=== PATIENT | male | born 1980 | race Caucasian/White ===

== ENCOUNTER 2016-11-18 18:14 | Emergency (ER) | payer OTHER ==
[~2016-11-18] VITALS: Ht 177.8 cm; Wt 120.0 kg
[2016-11-18] MEDS ORDERED: ONDANSETRON 4MG ODT PO ONE (23:00)
[2016-11-18] MEDS ORDERED: KETOROLAC 30MG/ML VIAL IM ONE (23:00)
[2016-11-18 23:57] LABS: BASOPHILS % 0.9 % (0.0-2.0); EOSINOPHILS % 3.1 % (0.0-5.0); HEMATOCRIT. 38.7 % (42.0-52.0); LYMPHOCYTES % 24.1 % (20.0-50.0); MEAN CORPUSCULAR HEMOGLOBIN 29.1 pg (28.0-32.0); MEAN CORPUSCULAR VOLUME 86.7 fL (80.0-94.0); MEAN PLATELET VOLUME 10.6 fl (7.4-10.4); MONOCYTES % 9.4 % (2.0-8.0); NEUTROPHILS % 62.5 % (40.0-76.0); PLATELET 166 x1000/uL (130-400); RED BLOOD CELL COUNT 4.47 mill/uL (4.7-6.1); RED CELL DISTRIBUTION WIDTH 13.4 % (11.6-14.6)
[2016-11-19 00:18] LABS: CARBON DIOXIDE 28 mEq/L (21-32); CHLORIDE 104 mEq/L (98-107)
[2016-11-19 00:58] VITALS: BP 141/85
== END 2016-11-19 01:08 | disposition home or self-care (01) ==
LOC: ER 18:26
DX: G43.909 Migraine, unspecified, not intractable, without status migrainosus (principal); M79.642 Pain in left hand; M79.641 Pain in right hand; M25.532 Pain in left wrist; M25.531 Pain in right wrist; R20.0 Anesthesia of skin; R20.2 Paresthesia of skin; I10 Essential (primary) hypertension; E66.9 Obesity, unspecified; Z68.38 Body mass index [BMI] 38.0-38.9, adult
CPT/HCPCS: 36415; 80053; 85025; 96372; 99284; J1885; Q0162

== ENCOUNTER 2017-03-08 09:05 | Emergency (ER) | payer OTHER ==
[~2017-03-08] VITALS: Ht 170.2 cm; Wt 122.0 kg
[2017-03-08] MEDS ORDERED: KETOROLAC 60MG/2ML VIAL IM ONE (09:30)
[2017-03-08] MEDS ORDERED: HYDROCODONE/ACETAMINOPHEN 5/325MG TABLET PO ONE (09:30)
[2017-03-08] MEDS ORDERED: ONDANSETRON 4MG ODT PO ONE (09:30)
[2017-03-08 09:47] VITALS: BP 127/85
== END 2017-03-08 11:22 | disposition home or self-care (01) ==
LOC: ER 09:05
DX: S70.01XA Contusion of right hip, initial encounter (principal); M54.40 Lumbago with sciatica, unspecified side; G43.909 Migraine, unspecified, not intractable, without status migrainosus; F17.210 Nicotine dependence, cigarettes, uncomplicated; E66.9 Obesity, unspecified; Z68.41 Body mass index [BMI] 40.0-44.9, adult; W01.0XXA Fall on same level from slipping, tripping and stumbling without subsequent striking against object, initial encounter; Y93.89 Activity, other specified; Y92.512 Supermarket, store or market as the place of occurrence of the external cause
CPT/HCPCS: 72100; 73521; 96372; 99284; J1885; Q0162; Z7610

== ENCOUNTER 2017-05-05 18:40 | Inpatient (IN) | payer MEDICAID, OTHER ==
[~2017-05-05] VITALS: Ht 170.2 cm; Wt 113.4 kg
[2017-05-05] MEDS ORDERED: MORPHINE SULFATE 4 MG/ML CPJ (NOT FOR IM USE) IV STA (22:07)
[2017-05-05] MEDS ORDERED: ONDANSETRON HCL 4MG/2ML VIAL IV STA (22:07)
[2017-05-05] MEDS ORDERED: SODIUM CHLORIDE 0.9% 1,000 ML IV ONE (22:09)
[2017-05-05 22:42] LABS: CHLORIDE 103 mEq/L (98-107)
[2017-05-05 22:43] LABS: INR 1.1; PARTIAL THROMBOPLASTIN TIME 26.5 sec (23.4-31.0); PROTHROMBIN TIME 11.2 sec (9.4-11.6)
[2017-05-05 22:47] LABS: BASOPHILS % 0.7 % (0.0-2.0); CARBON DIOXIDE 27 mEq/L (21-32); EOSINOPHILS % 0.9 % (0.0-5.0); HEMATOCRIT. 38.4 % (42.0-52.0); HEMOGLOBIN. 12.8 g/dL (14.0-18.0); LYMPHOCYTES % 21.3 % (20.0-50.0); MEAN CORPUSCULAR HEMOGLOBIN 29.6 pg (28.0-32.0); MEAN PLATELET VOLUME 10.5 fl (7.4-10.4); MONOCYTES % 8.4 % (2.0-8.0); NEUTROPHILS % 68.7 % (40.0-76.0); PLATELET 212 x1000/uL (130-400); RED BLOOD CELL COUNT 4.32 mill/uL (4.7-6.1); RED CELL DISTRIBUTION WIDTH 13.7 % (11.6-14.6)
[2017-05-05 22:51] LABS: TROPONIN I < 0.02 ng/mL (0.00-0.04)
[2017-05-06] MEDS: HYDROCODONE/ACETAMINOPHEN 5/325MG TABLET PO PRN ×2 (06:42→12:28)
[2017-05-06 08:30] VITALS: BP 140/91
[2017-05-06] MEDS ORDERED: [UNRECOGNIZED DRUG - CODE] PO (09:21)
[2017-05-06] MEDS ORDERED: IBUP-2030 PO (09:21)
[2017-05-06] MEDS ORDERED: SODIUM CHLORIDE 0.9% 1,000 ML IV SCH (11:00)
[2017-05-06 12:00] VITALS: BP 128/63
[2017-05-06 13:31] LABS: *AMPHETAMINES SCREEN URINE NEGATIVE (NEGATIVE); *BARBITURATES SCREEN URINE NEGATIVE (NEGATIVE); *BENZODIAZEPINES SCREEN URINE NEGATIVE (NEGATIVE); *COCAINE SCREEN URINE NEGATIVE (NEGATIVE); CANNABINOID URINE SCREEN PRESUMTIVE POSITIVE (NEGATIVE); METHADONE URINE SCREEN NEGATIVE (NEGATIVE); OPIATES URINE SCREEN PRESUMTIVE POSITIVE (NEGATIVE); PHENCYCLIDINE URINE SCREEN NEGATIVE (NEGATIVE)
[2017-05-06] MEDS ORDERED: ONDANSETRON HCL 4MG/2ML VIAL IV PRN (14:15)
[2017-05-06 15:55] LABS: CREATINE KINASE 100 IU/L (39-308)
[2017-05-06 16:00] VITALS: BP 141/68
== END 2017-05-06 16:30 | disposition left against medical advice (07) | DRG 57 ==
LOC: ER 20:23 → 7WST 05-06 01:32 → ENRESERV 05-06 07:08
PROVIDERS: ADMIT Family Medicine Adult Medicine; ATTEND Family Medicine Adult Medicine
DX: S06.0X9A Concussion with loss of consciousness of unspecified duration, initial encounter (principal); E83.51 Hypocalcemia; E66.9 Obesity, unspecified; D64.9 Anemia, unspecified; F17.210 Nicotine dependence, cigarettes, uncomplicated; G56.03 Carpal tunnel syndrome, bilateral upper limbs; F12.90 Cannabis use, unspecified, uncomplicated; M53.82 Other specified dorsopathies, cervical region; V43.52XA Car driver injured in collision with other type car in traffic accident, initial encounter; Y93.89 Activity, other specified; Y99.8 Other external cause status; Y92.410 Unspecified street and highway as the place of occurrence of the external cause; Z68.39 Body mass index [BMI] 39.0-39.9, adult; Z53.21 Procedure and treatment not carried out due to patient leaving prior to being seen by health care provider
CPT/HCPCS: 36415; 70450; 71010; 72070; 72100; 72125; 80053; 80305; 82550; 84484; 85025; 85610; 85730; 93005; 96361; 96374; 96375; 97162; 99285; G0482; J2270; J2405; J7030

== ENCOUNTER 2017-11-05 08:06 | Emergency (ER) | payer MEDICAID, OTHER ==
[~2017-11-05] VITALS: Ht 167.6 cm; Wt 122.0 kg
[~2017-11-05 08:06] MED LIST: IBUP-2030 PO; [UNRECOGNIZED DRUG - CODE] PO
[2017-11-05 11:16] LABS: CLARITY URINE CLEAR (CLEAR); COLOR URINE YELLOW (YELLOW); KETONES URINE NEGATIVE (NEGATIVE); LEUKOCYTE ESTERASE URINE NEGATIVE (NEGATIVE); NITRITE URINE NEGATIVE (NEGATIVE); OCCULT BLOOD URINE NEGATIVE (NEGATIVE); PROTEIN URINE NEGATIVE (NEGATIVE); SPECIFIC GRAVITY URINE 1.016 (1.005-1.030); UROBILINOGEN URINE 0.2 E.U./dL (0.2-1.0)
[2017-11-05 11:25] LABS: EOSINOPHILS % 2.1 % (0.0-5.0); HEMATOCRIT. 38.2 % (42.0-52.0); MEAN CORPUSCULAR HEMOGLOBIN 29.5 pg (28.0-32.0); MEAN CORPUSCULAR VOLUME 86.8 fL (80.0-94.0); MONOCYTES % 8.4 % (2.0-8.0); NEUTROPHILS % 62.5 % (40.0-76.0); PLATELET 193 x1000/uL (130-400); RED BLOOD CELL COUNT 4.41 mill/uL (4.7-6.1); RED CELL DISTRIBUTION WIDTH 13.3 % (11.6-14.6)
[2017-11-05 11:36] LABS: CHLORIDE 105 mEq/L (98-107)
[2017-11-05 11:42] LABS: ETHANOL BLOOD < 10 mg/dL
[2017-11-05 11:49] LABS: PHENCYCLIDINE URINE SCREEN NEGATIVE (NEGATIVE)
[2017-11-05 11:50] LABS: *AMPHETAMINES SCREEN URINE NEGATIVE (NEGATIVE); *BARBITURATES SCREEN URINE NEGATIVE (NEGATIVE); *BENZODIAZEPINES SCREEN URINE NEGATIVE (NEGATIVE); *COCAINE SCREEN URINE NEGATIVE (NEGATIVE); CANNABINOID URINE SCREEN PRESUMTIVE POSITIVE (NEGATIVE); METHADONE URINE SCREEN NEGATIVE (NEGATIVE)
[2017-11-05 11:51] LABS: OPIATES URINE SCREEN NEGATIVE (NEGATIVE)
[2017-11-05] MEDS ORDERED: IBUPROFEN 400MG TABLET PO ONE (12:00)
[2017-11-06] MEDS ORDERED: ACETAMINOPHEN 325MG TABLET PO ONE (02:15)
[2017-11-06 11:07] VITALS: BP 152/89
== END 2017-11-06 11:35 | disposition home or self-care (01) ==
LOC: ER 08:17
DX: R45.851 Suicidal ideations (principal); F12.129 Cannabis abuse with intoxication, unspecified; I10 Essential (primary) hypertension; M54.5 Low back pain; R51 Headache; F17.200 Nicotine dependence, unspecified, uncomplicated
CPT/HCPCS: 36415; 80053; 80305; 80307; 80329; 81003; 85025; 99284; G0482

== ENCOUNTER 2020-03-25 07:20 | Emergency (ER) | payer MEDICAID, OTHER ==
[~2020-03-25] VITALS: Ht 172.7 cm; Wt 80.0 kg
[2020-03-25 07:56] LABS: BASOPHILS % 0.8 % (0.0-2.0); EOSINOPHILS % 3.9 % (0.0-5.0); HEMATOCRIT. 36.1 % (42.0-52.0); HEMOGLOBIN. 12.3 g/dL (14.0-18.0); MEAN CORPUSCULAR HEMOGLOBIN 30.4 pg (28.0-32.0); MEAN CORPUSCULAR VOLUME 89.1 fL (80.0-94.0); MEAN PLATELET VOLUME 10.3 fl (7.4-10.4); MONOCYTES % 9.4 % (2.0-8.0); NEUTROPHILS % 57.9 % (40.0-76.0); PLATELET 143 x1000/uL (130-400); RED BLOOD CELL COUNT 4.05 mill/uL (4.7-6.1); RED CELL DISTRIBUTION WIDTH 13.4 % (11.6-14.6)
[2020-03-25 08:06] LABS: CHLORIDE 106 mEq/L (98-107)
[2020-03-25 10:20] VITALS: BP 121/89
== END 2020-03-25 10:32 | disposition home or self-care (01) ==
LOC: ER 07:34
DX: R07.89 Other chest pain (principal); E78.00 Pure hypercholesterolemia, unspecified; I10 Essential (primary) hypertension
CPT/HCPCS: 36415; 71045; 80053; 83880; 84484; 85025; 93005; 99285

== ENCOUNTER 2021-03-12 19:55 | Emergency (ER) | payer MEDICAID, OTHER ==
[~2021-03-12] VITALS: Ht 172.7 cm; Wt 91.0 kg
[2021-03-12] MEDS ORDERED: ACETAMINOPHEN 325MG TABLET PO STA (20:55)
[2021-03-12 21:34] LABS: BASOPHILS % 0.7 % (0.0-2.0); EOSINOPHILS % 4.3 % (0.0-5.0); HEMATOCRIT. 33.5 % (42.0-52.0); HEMOGLOBIN. 11.2 g/dL (14.0-18.0); MEAN CORPUSCULAR HEMOGLOBIN 29.6 pg (28.0-32.0); MEAN CORPUSCULAR VOLUME 88.2 fL (80.0-94.0); PLATELET 144 x1000/uL (130-400)
[2021-03-12 21:40] LABS: CHLORIDE 108 mEq/L (98-107)
[2021-03-13] MEDS ORDERED: IBUP-2028 MT (00:50)
[2021-03-13 01:55] VITALS: BP 115/60
== END 2021-03-13 02:32 | disposition home or self-care (01) ==
LOC: ER 19:55
DX: R07.2 Precordial pain (principal); I10 Essential (primary) hypertension; F12.10 Cannabis abuse, uncomplicated; Z71.51 Drug abuse counseling and surveillance of drug abuser; E66.9 Obesity, unspecified; Z68.30 Body mass index [BMI] 30.0-30.9, adult
CPT/HCPCS: 36415; 71045; 80053; 83880; 84484; 85025; 93005; 99285

== ENCOUNTER 2022-10-02 23:55 | Emergency (ER) | payer MEDICAID, OTHER ==
[~2022-10-02] VITALS: Ht 177.8 cm; Wt 105.0 kg
[~2022-10-02 23:55] MED LIST changes: +IBUP-2028 MT
[2022-10-03] MEDS ORDERED: LORAZEPAM 1MG TABLET PO ONE (02:15)
[2022-10-03 03:10] VITALS: BP 112/61
== END 2022-10-03 03:27 | disposition home or self-care (01) ==
LOC: ER 23:55
DX: F43.9 Reaction to severe stress, unspecified (principal); F41.9 Anxiety disorder, unspecified; E78.00 Pure hypercholesterolemia, unspecified; I10 Essential (primary) hypertension; F12.10 Cannabis abuse, uncomplicated
CPT/HCPCS: 99283